=== PATIENT | male | born 1960 | race Caucasian/White ===

== ENCOUNTER 2018-08-05 10:45 | Outpatient (CLI) | payer BC ==
--- NOTE | 2018-08-05 11:30 | RAD ---
XR Chest Pa Lat STANDARD History: [Weight loss. Adenoma of rectum.] Comparison: None. Findings: Lungs are clear. No pneumothorax or effusion. Cardiac silhouette and mediastinal contours a re within normal limits. Remote right posterior rib fracture. Impression: No acute intrathoracic abnormality.
== END 2018-08-05 10:46 | disposition home or self-care (01) ==
LOC: BICRAD 10:45
PROVIDERS: ATTEND Internal Medicine Gastroenterology
DX: K52.9 Noninfective gastroenteritis and colitis, unspecified (principal); R63.4 Abnormal weight loss; D12.8 Benign neoplasm of rectum
CPT/HCPCS: 71046

== ENCOUNTER 2020-10-13 17:16 | Inpatient (IN) | payer BC, OTHER ==
[2020-10-13] MEDS ORDERED: Morphine 4 MG/ML VIAL ONE (18:06)
[2020-10-13 18:14] LABS: #Lymphocytes 0.8 thou/uL (1.20-3.40); #Monocytes 0.6 thou/uL (0.11-0.59); #Neutrophils 9.4 thou/uL (1.40-6.50); %Basophils 0.2 % (0.0-1.0); %Eosinophils 0.2 % (0.0-10.0); %Lymphocytes 7.1 % (21.0-51.0); %Monocytes 5.4 % (0.0-10.0); %Neutrophils 87.1 % (42.0-75.0); Hemoglobin 13.1 g/dL (14.0-18.0); Mean Corpuscular HGB CONC 33.3 g/dL (32.0-36.0); Mean Corpuscular Hemoglobin 32.5 pg (27.0-31.0); Mean Corpuscular Volume 97.5 fL (78.0-98.0); Mean Platelet Volume 7.5 fL (7.4-10.4); Platelet Count 189 thou/uL (130-400); RBC Distribution Width 12.6 % (11.5-14.5); Red Blood Cell (RBC) Count 4.02 mill/uL (4.70-6.10); White Blood Cell (WBC) Count 10.7 thou/uL (4.8-10.8)
[2020-10-13 18:37] LABS: ALT (SGPT) 13 U/L (8-55); AST (SGOT) 22 U/L (5-34); Albumin 4.1 g/dL (3.4-4.8); Alkaline Phosphatase 65 U/L (40-110); Anion Gap 11 mmol/L (10-20); BUN (Urea Nitrogen) 16 mg/dL (8.4-25.7); Bilirubin, Total 0.3 mg/dL (0.2-1.2); Calc. Creatinine Clearance 0 mL/min (70-130); Calcium 9.2 mg/dL (7.8-10.44); Carbon Dioxide 27 mmol/L (23-31); Chloride 106 mmol/L (98-107); Globulin 2.4 g/dL (2.4-3.5); Glucose 118 mg/dL (80-115); Potassium 4.5 mmol/L (3.5-5.1); Protein, Total 6.5 g/dL (5.8-8.1); Sodium 139 mmol/L (136-145)
[2020-10-13] MEDS ORDERED: Morphine 2 MG/ML VIAL SLOW IVP PRN (20:13)
[2020-10-13] MEDS ORDERED: Ondansetron PF 4 MG/2 ML Vial IVP PRN (20:15)
[2020-10-13] MEDS ORDERED: hydrALAZINE 20 MG/ML VIAL SLOW IVP PRN (20:15)
[2020-10-13] MEDS ORDERED: Lorazepam 2 MG/ML VIAL SLOW IVP PRN (20:15)
[2020-10-13] MEDS ORDERED: traMADol HCl 50 MG TAB PO PRN (20:18)
[2020-10-13] MEDS ORDERED: Zolpidem Tartrate 5 MG TAB PO PRN (20:20)
[2020-10-13] MEDS ORDERED: CEFAZOLIN 2 GM in Premix Bag 1 BAG IVPB SCH (20:30)
[2020-10-13 21:21] LABS: SARS-CoV-2 NAA Rapid Test Not Detected (NotDetected)
[2020-10-13] MEDS: Lactated Ringer's 1,000 ML IV SCH (21:59)
[2020-10-13] MEDS: Acetaminophen 325 MG TAB PO SCH (21:59)
[2020-10-13] MEDS: Cyclobenzaprine 10 MG TAB PO PRN (21:59)
[2020-10-13] MEDS: Gabapentin 300 MG CAP PO SCH (21:59)
[2020-10-13] MEDS: Senokot S 8.6-50 MG TAB PO SCH (22:00)
[2020-10-13] MEDS: Famotidine/PF 20 mg/2ml Vial SLOW IVP SCH (22:00)
[2020-10-13 22:48] VITALS: BMI 24.5
[2020-10-13] MEDS: traMADol HCl 50 MG TAB PO SCH (23:18)
[2020-10-14] MEDS: Acetaminophen 325 MG TAB PO SCH ×4 (03:05→19:49)
[2020-10-14] MEDS: Lactated Ringer's 1,000 ML IV SCH (04:04)
[2020-10-14] MEDS: Cyclobenzaprine 10 MG TAB PO PRN ×2 (05:11→20:18)
[2020-10-14] MEDS: traMADol HCl 50 MG TAB PO SCH ×3 (05:12→17:08)
[2020-10-14 06:05] LABS: #Lymphocytes 1.7 thou/uL (1.20-3.40); #Monocytes 0.8 thou/uL (0.11-0.59); #Neutrophils 4.5 thou/uL (1.40-6.50); %Basophils 0.2 % (0.0-1.0); %Eosinophils 0.3 % (0.0-10.0); %Lymphocytes 24.1 % (21.0-51.0); %Monocytes 11.4 % (0.0-10.0); Hemoglobin 12.6 g/dL (14.0-18.0); Mean Corpuscular HGB CONC 33.4 g/dL (32.0-36.0); Mean Corpuscular Volume 98.8 fL (78.0-98.0); Mean Platelet Volume 7.1 fL (7.4-10.4); Platelet Count 177 thou/uL (130-400); RBC Distribution Width 12.7 % (11.5-14.5); Red Blood Cell (RBC) Count 3.82 mill/uL (4.70-6.10); White Blood Cell (WBC) Count 7.1 thou/uL (4.8-10.8)
[2020-10-14] MEDS ORDERED: Fentanyl 100 MCG/2 ML VIAL ONE ×2 (06:09→09:05)
[2020-10-14] MEDS ORDERED: Lidocaine 2% Jelly 5 ML TUBE ONE (06:09)
[2020-10-14] MEDS ORDERED: CEFAZOLIN 1 GM VIAL ONE (06:11)
[2020-10-14 06:15] LABS: INR-International Normal Ratio 1.1
[2020-10-14 06:16] LABS: PTT 29.6 sec (22.9-36.1)
[2020-10-14 06:26] LABS: Anion Gap 10 mmol/L (10-20); BUN (Urea Nitrogen) 13 mg/dL (8.4-25.7); Calc. Creatinine Clearance 79 mL/min (70-130); Calcium 8.9 mg/dL (7.8-10.44); Carbon Dioxide 29 mmol/L (23-31); Chloride 104 mmol/L (98-107); Glucose 101 mg/dL (80-115); Sodium 139 mmol/L (136-145)
[2020-10-14] MEDS ORDERED: Dexamethasone 20 MG/5 ML VIAL ONE (07:50)
[2020-10-14] MEDS ORDERED: Ondansetron PF 4 MG/2 ML Vial ONE (07:50)
[2020-10-14] MEDS ORDERED: Rocuronium Bromide 10 MG/ML (10ML VIAL) ONE (07:50)
[2020-10-14] MEDS ORDERED: Glycopyrrolate 0.2 MG/ML 5 ML SYRINGE ONE (07:50)
[2020-10-14] MEDS ORDERED: Lidocaine 1% PF 5 ML VIAL ONE (07:50)
[2020-10-14] MEDS ORDERED: PROPOFOL 200 MG/20 ML VIAL ONE (07:50)
[2020-10-14] MEDS ORDERED: Promethazine HCl 25 MG/ML VIAL IVPB PRN (08:44)
[2020-10-14] MEDS ORDERED: Promethazine HCl 25 MG/ML VIAL IM PRN (08:44)
[2020-10-14] MEDS ORDERED: Ondansetron HCl/PF 4 MG/2 ML Vial IVP PRN (08:44)
[2020-10-14] MEDS: Gabapentin 300 MG CAP PO SCH ×3 (09:53→19:49)
[2020-10-14] MEDS: Famotidine/PF 20 mg/2ml Vial SLOW IVP SCH ×2 (09:53→19:48)
[2020-10-14] MEDS: AMOXicillin 250 MG CAP PO SCH ×3 (09:53→19:48)
[2020-10-14] MEDS: Polyethylene Glycol 3350 17 GM Packet PO SCH (09:54)
[2020-10-14] MEDS: Senokot S 8.6-50 MG TAB PO SCH ×2 (09:54→19:48)
[2020-10-14] MEDS ORDERED: Zolpidem Tartrate 5 MG TAB PO PRN (11:52)
[2020-10-14] MEDS: CEFAZOLIN 2 GM in Premix Bag 1 BAG IVPB SCH ×2 (13:00→19:50)
[2020-10-15] MEDS: traMADol HCl 50 MG TAB PO SCH ×5 (01:00→21:00)
[2020-10-15] MEDS: Acetaminophen 325 MG TAB PO SCH ×4 (02:22→21:01)
[2020-10-15] MEDS: Cyclobenzaprine 10 MG TAB PO PRN ×2 (04:29→21:12)
[2020-10-15] MEDS: Gabapentin 300 MG CAP PO SCH ×3 (08:56→21:00)
[2020-10-15] MEDS: AMOXicillin 250 MG CAP PO SCH ×3 (08:56→21:00)
[2020-10-15] MEDS: Atorvastatin Calcium 10 MG TAB PO SCH (08:56)
[2020-10-15] MEDS: Senokot S 8.6-50 MG TAB PO SCH ×2 (08:56→21:01)
[2020-10-15] MEDS: Polyethylene Glycol 3350 17 GM Packet PO SCH (09:00)
[2020-10-15] MEDS: Enoxaparin Sodium 40 MG/0.4 ML SYRINGE SC SCH (09:00)
[2020-10-15] MEDS: Famotidine/PF 20 mg/2ml Vial SLOW IVP SCH ×3 (09:01→21:39)
[2020-10-15] MEDS: Nicotine 7 MG PATCH TD SCH (13:12)
[2020-10-15] MEDS: Famotidine 20 MG TAB PO SCH (21:20)
[2020-10-16] MEDS: Acetaminophen 325 MG TAB PO SCH ×4 (01:59→20:17)
[2020-10-16] MEDS: traMADol HCl 50 MG TAB PO SCH ×4 (01:59→20:17)
[2020-10-16] MEDS: Gabapentin 300 MG CAP PO SCH ×3 (08:40→20:17)
[2020-10-16] MEDS: Famotidine 20 MG TAB PO SCH ×2 (08:40→20:17)
[2020-10-16] MEDS: Atorvastatin Calcium 10 MG TAB PO SCH (08:41)
[2020-10-16] MEDS: Polyethylene Glycol 3350 17 GM Packet PO SCH (08:41)
[2020-10-16] MEDS: AMOXicillin 250 MG CAP PO SCH ×3 (08:41→20:16)
[2020-10-16] MEDS: Enoxaparin Sodium 40 MG/0.4 ML SYRINGE SC SCH (08:41)
[2020-10-16] MEDS: Senokot S 8.6-50 MG TAB PO SCH ×2 (10:44→20:23)
[2020-10-16] MEDS: Nicotine 7 MG PATCH TD SCH (12:39)
[2020-10-17] MEDS: Acetaminophen 325 MG TAB PO SCH ×3 (02:40→14:54)
[2020-10-17] MEDS: traMADol HCl 50 MG TAB PO SCH ×3 (02:41→14:54)
[2020-10-17 07:52] VITALS: TEMP 97.7
[2020-10-17] MEDS: Senokot S 8.6-50 MG TAB PO SCH (08:44)
[2020-10-17] MEDS: Gabapentin 300 MG CAP PO SCH ×2 (08:45→14:55)
[2020-10-17] MEDS: Atorvastatin Calcium 10 MG TAB PO SCH (08:45)
[2020-10-17] MEDS: Famotidine 20 MG TAB PO SCH (08:45)
[2020-10-17] MEDS: Polyethylene Glycol 3350 17 GM Packet PO SCH (08:45)
[2020-10-17] MEDS: Enoxaparin Sodium 40 MG/0.4 ML SYRINGE SC SCH (08:46)
[2020-10-17] MEDS: AMOXicillin 250 MG CAP PO SCH ×2 (08:49→15:46)
[2020-10-17 11:59] VITALS: BP 118/76
[2020-10-17] MEDS: Nicotine 7 MG PATCH TD SCH (13:02)
[2020-10-17] MEDS ORDERED: Tamsulosin HCl 0.4 MG CAP PO SCH (14:30)
[2020-10-18] MEDS ORDERED: Tamsulosin HCl 0.4 MG CAP PO SCH (09:00)
== END 2020-10-17 16:05 | disposition home or self-care (01) | DRG 482 ==
LOC: ERS 17:16 → SURG B 20:13
PROVIDERS: ADMIT Surgery; ATTEND Surgery
PROC: 0QS704Z Reposition Left Upper Femur with Internal Fixation Device, Open Approach (ICD-10-PCS; principal; 2020-10-14)
DX: S72.142A Displaced intertrochanteric fracture of left femur, initial encounter for closed fracture (principal); Z20.822 Contact with and (suspected) exposure to COVID-19; I10 Essential (primary) hypertension; E78.5 Hyperlipidemia, unspecified; F17.220 Nicotine dependence, chewing tobacco, uncomplicated; F41.9 Anxiety disorder, unspecified; L03.011 Cellulitis of right finger; G47.00 Insomnia, unspecified; Y92.79 Other farm location as the place of occurrence of the external cause; V04.99XA Pedestrian with other conveyance injured in collision with heavy transport vehicle or bus, unspecified whether traffic or nontraffic accident, initial encounter; Z90.89 Acquired absence of other organs
CPT/HCPCS: 0240U; 36415; 71045; 72192; 76000; 80048; 80053; 85025; 85610; 85730; 86850; 86900; 86901; 93005; 96374; C1713; G0390; J0690; J1100; J1650; J2270; J2405; J2704; J3010; S0028